=== PATIENT | male | born 1960 | race Caucasian/White ===

== ENCOUNTER 2016-10-20 00:28 | Emergency (ER) | payer MEDICARE, OTHER ==
[~2016-10-20] VITALS: Ht 175.3 cm; Wt 119.0 kg
[~2016-10-20 00:28] MED LIST: APRI0.372; ASPI1TAB7 PO; DOCU1CAP39 PO; FURO20 PO; GABA300C3 PO; METH40TA9 PO; NITR.4 SL; POTA20IN3 PO; SPIR25TA PO; TRAZ100 PO
[2016-10-20] MEDS ORDERED: SODIUM CHLOR 0.9% 1000 ML INJ 1,000 ML IV SCH (00:42)
[2016-10-20] MEDS ORDERED: METH40TA PO (00:42)
[2016-10-20 00:45] VITALS: RESP 18; O2SAT 96
[2016-10-20] MEDS ORDERED: cloNIDine HCL 0.1 MG TAB PO ONE (00:45)
[2016-10-20] MEDS ORDERED: SODIUM CHLORIDE 0.9% FLUSH 10 ML FLUSH IV FLUSH PRN (00:45)
[2016-10-20] MEDS ORDERED: LORazepam 2 MG/ML VIAL IV PUSH ONE (00:45)
[2016-10-20] MEDS ORDERED: LORA-392 PO (03:08)
[2016-10-20] MEDS ORDERED: CLON0.1T PO (03:08)
--- NOTE | 2016-10-20 03:09 | PD ---
HPI Chief Complaint: Anxiety Time Seen by Provider: 00:42 Travel History International Travel<30 days: No Contact w/Intl Traveler<30days: No Traveled to known affect area: No History of Present Illness HPI A 56-year-old male has a history of methadone use, 190 mg daily for 2 years. He took Suboxone yesterday 2 mg. He called EMS due to a generalized sensation of feeling poor. Diaphoresis and restlessness was observed on scene by EMS. Patient has had no chest pain or shortness of breath. He states he intends to taper down his methadone. He denies drug abuse otherwise. PFSH Past Medical History Arthritis: Yes Asthma: No Blood Disorders: No Bipolar Disorder: Yes Anxiety: Yes Depression: Yes Heart Rhythm Problems: Yes (MURMUR) Cancer: Yes (PROSTATE) Cardiovascular Problems: Yes ([place]) High Cholesterol: No Chest Pain: Yes Congestive Heart Failure: No COPD: No Cerebrovascular Accident: No Diabetes: No Diminished Hearing: No Endocrine: No Gastrointestinal Disorders: Yes (ULCERATIVE COLITIS) Genitourinary: No Headaches: No Hypertension: Yes Immune Disorder: No Musculoskeletal: Yes (HERNIATED DISCS X 3) Neurologic: Yes Psychiatric: Yes Reproductive: No Respiratory: Yes Migraines: No Myocardial Infarction: No Seizures: Yes Sleep Apnea: No Past Surgical History Abdominal Surgery: Yes (COLONOSCOPY) AICD: No Arteriovenous Shunt: No Genitourinary Surgery: Yes (PROSTATE REMOVED) Insulin Pump: No Joint Replacement: No Pacemaker: No Other Surgery: No Social History Alcohol Use: No (QUIT 2011) Tobacco Use: Yes (CIGARETTS 1PPD) Substance Use: Yes (QUIT X 1 YEAR taking methadone) Allergies-Medications (Allergen,Severity, Reaction): Coded Allergies: Nonsteroidal Anti-Inflammatory Agts (Verified Allergy, Intermediate, worsens colitis problems, 10/20/16) Ibuprofen (Verified Adverse Reaction, Intermediate, 10/20/16) Uncoded Allergies: steriods (Adverse Reaction, Intermediate, 05/21/13) Reported Meds & Prescriptions Reported Meds & Active Scripts Active Reported Methadone (Methadone HCl) 40 Mg Tab 190 Mg PO DAILY Review of Systems Except as stated in HPI: all other systems reviewed are Neg Physical Exam Narrative GENERAL: 56-year-old male well-nourished well-developed mildly anxious SKIN: Focused skin assessment warm/dry. HEAD: Atraumatic. Normocephalic. EYES: Pupils equal and round. No scleral icterus. No injection or drainage. ENT: No nasal bleeding or discharge. Mucous membranes pink and moist. NECK: Trachea midline. No JVD. CARDIOVASCULAR: Regular rate and rhythm. No murmur appreciated. RESPIRATORY: No accessory muscle use. Clear to auscultation. Breath sounds equal bilaterally. GASTROINTESTINAL: Abdomen soft, non-tender, nondistended. Hepatic and splenic margins not palpable. MUSCULOSKELETAL: No obvious deformities. No clubbing. No cyanosis. No edema. NEUROLOGICAL: Awake and alert. No obvious cranial nerve deficits. Motor grossly within normal limits. Normal speech. PSYCHIATRIC: Cooperative. Mildly anxious. Data Data Last Documented VS Vital Signs Date Time Temp Pulse Resp B/P Pulse Ox O2 Delivery O2 Flow Rate FiO2 10/20/16 00:45 18 96 Room Air Orders Lorazepam Inj (Ativan Inj) (10/20/16 00:45) Clonidine (Catapres) (10/20/16 00:45) Iv Access Insert/Monitor (10/20/16 00:42) Ecg Monitoring (10/20/16 00:42) Oximetry (10/20/16 00:42) Sodium Chlor 0.9% 1000 Ml Inj (Ns 1000 M (10/20/16 00:42) Sodium Chloride 0.9% Flush (Ns Flush) (10/20/16 00:45) MDM Medical Decision Making Medical Screen Exam Complete: Yes Emergency Medical Condition: Yes Differential Diagnosis opioid withdrawal, anxiety, panic attack Narrative Course Patient's presentation is considered in keeping with opioid withdrawal. We will mitigate his symptoms here as best we can. Upon reassessment the patient demonstrates good insight. He states he'll have access to methadone in 1 day. We'll provide him some Ativan and clonidine. He understands the side effects of both pain is considered a reasonable and responsible patient. Diagnosis Primary Impression: Opioid withdrawal Referrals: Isidoro Menchaca MD R3 2 days Additional Instructions: You have a choice when it comes to health care, and we are glad that you chose [facility]. Hopefully, we have met your expectations on today's visit. You are welcome to return to [facility] at any time, as we are committed to meeting the health care needs of our community. Med/Other Pt SpecificInfo: Prescription(s) given Scripts Clonidine 0.1 Mg Tab0.1 Mg PO BID #5 TAB Ref 0 Prov:Pedro Luis Munoz MD 10/20/16 Lorazepam (Ativan)0.5 Mg Tab0.5 Mg PO Q6H PRN (ANXIETY AND/OR AGITATION) #5 TAB Ref 0 Prov:Pedro Luis Munoz MD 10/20/16 Disposition: 01 DISCHARGE HOME Condition: Stable Pedro Luis Munoz MD Oct 20, 2016 03:09
[2016-10-20 03:11] VITALS: BP 125/70; PULSE 63; RESP 18; O2SAT 96
== END 2016-10-20 04:06 | disposition home or self-care (01) ==
LOC: NEPC 00:28
DX: F11.23 Opioid dependence with withdrawal (principal); R61 Generalized hyperhidrosis; R45.1 Restlessness and agitation; I10 Essential (primary) hypertension; F17.210 Nicotine dependence, cigarettes, uncomplicated
CPT/HCPCS: 96361; 96374; 99284; J2060; J7030

== ENCOUNTER 2016-11-04 10:42 | Emergency (ER) | payer OTHER ==
[~2016-11-04 10:42] MED LIST changes: -APRI0.372; -ASPI1TAB7 PO; +CLON0.1T PO; -DOCU1CAP39 PO; -FURO20 PO; -GABA300C3 PO; +LORA-392 PO; +METH40TA PO; -METH40TA9 PO; -NITR.4 SL; -POTA20IN3 PO; -SPIR25TA PO; -TRAZ100 PO
[2016-11-04 10:44] VITALS: BP 143/76; PULSE 88; RESP 24; TEMP 97.9; O2SAT 91
[2016-11-04] MEDS ORDERED: SODIUM CHLORID 0.9% 500 ML INJ 500 ML IV ONE (11:15)
[2016-11-04] MEDS ORDERED: methylPREDNISolone SOD SUCC 125 MG/2 ML VIAL IVP ONE (11:15)
[2016-11-04] MEDS ORDERED: FUROSEMIDE 40 MG/4 ML VIAL IVP ONE (11:15)
[2016-11-04] MEDS ORDERED: SODIUM CHLORIDE 0.9% FLUSH 10 ML FLUSH IVF PRN (11:15)
--- NOTE | 2016-11-04 11:28 | PD ---
HPI Chief Complaint: Medical Clearance Time Seen by Provider: 11:11 Travel History International Travel<30 days: No Contact w/Intl Traveler<30days: No Traveled to known affect area: No History of Present Illness HPI 56-year-old male presents the emergency department via ambulance with several day history of increasing cough, wheezing, shortness of breath, dyspnea with exertion. Patient has had decreased appetite, but denies specific fever, but does have chills. Patient complains of mild nausea but no vomiting or diarrhea. Patient states his cough is productive of yellowish-green sputum. Patient denies headache, sore throat, or nasal congestion. Patient has a history of [place], COPD, current smoker, and CHF. Patient states he is not taking any type of diuretic currently. Patient does not use home nebulizers or inhalers. Patient is somewhat poor historian. Patient feels generalized weakness today. Patient reports allergies to ibuprofen, nonsteroidals, and steroids. PFSH Past Medical History Arthritis: Yes Asthma: No Blood Disorders: No Bipolar Disorder: Yes Anxiety: Yes Depression: Yes Heart Rhythm Problems: Yes (MURMUR) Cancer: Yes (PROSTATE) Cardiovascular Problems: Yes ([place]) High Cholesterol: No Chest Pain: Yes Congestive Heart Failure: No COPD: No Cerebrovascular Accident: No Diabetes: No Diminished Hearing: No Endocrine: No Gastrointestinal Disorders: Yes (ULCERATIVE COLITIS) Genitourinary: No Headaches: No Hypertension: Yes Immune Disorder: No Musculoskeletal: Yes (HERNIATED DISCS X 3) Neurologic: Yes Psychiatric: Yes Reproductive: No Respiratory: Yes Migraines: No Myocardial Infarction: No Seizures: Yes Sleep Apnea: No Past Surgical History Abdominal Surgery: Yes (COLONOSCOPY) AICD: No Arteriovenous Shunt: No Genitourinary Surgery: Yes (PROSTATE REMOVED) Insulin Pump: No Joint Replacement: No Pacemaker: No Other Surgery: No Social History Alcohol Use: No (QUIT 2011) Tobacco Use: Yes (CIGARETTS 1PPD) Substance Use: Yes (QUIT X 1 YEAR taking methadone) Allergies-Medications (Allergen,Severity, Reaction): Coded Allergies: Nonsteroidal Anti-Inflammatory Agts (Verified Allergy, Intermediate, worsens colitis problems, 10/20/16) Ibuprofen (Verified Adverse Reaction, Intermediate, 10/20/16) Uncoded Allergies: steriods (Adverse Reaction, Intermediate, 05/21/13) Reported Meds & Prescriptions Reported Meds & Active Scripts Active Prednisone 20 Mg Tab 20 Mg PO BID Azithromycin 500 Mg Tab 500 Mg PO DAILY Ventolin Hfa 18 GM Inh (Albuterol Sulfate) 90 Mcg/Act Aer 2 Puff INH Q4-6H PRN Clonidine (Clonidine HCl) 0.1 Mg Tab 0.1 Mg PO BID Ativan (Lorazepam) 0.5 Mg Tab 0.5 Mg PO Q6H PRN Reported Methadone (Methadone HCl) 40 Mg Tab 190 Mg PO DAILY Review of Systems ROS Limitations: Poor Historian Except as stated in HPI: all other systems reviewed are Neg General / Constitutional: Positive: Chills, No: Fever Eyes: No: Visual changes HENT: Positive: Rhinitis, Rhinorrhea, Congestion, No: Headaches, Vertigo, Lightheadedness, Sore Throat, Nosebleed, Neck Stiffness, Neck Pain, Dental Difficulties, Ear Discharge, Earache Cardiovascular: Positive: Dyspnea on exertion, No: Chest Pain or Discomfort, Edema Respiratory: Positive: Cough, Shortness of Breath, Orthopnea, No: Wheezing, Sneezing, Hemoptysis, Night Sweats, Pleuritic Pain Gastrointestinal: Positive: Nausea, No: Vomiting, Diarrhea, Abdominal Pain Genitourinary: No: Dysuria Musculoskeletal: No: Pain Skin: No Rash Neurologic: No: Weakness Psychiatric: No: Depression Endocrine: No: Polydipsia Hematologic/Lymphatic: No: Easy Bruising Physical Exam Narrative GENERAL: Patient appears unwell but not septic. SKIN: Warm and dry. Somewhat poor pallor. Poor turgor. Mild tenting. HEAD: Atraumatic. Normocephalic. EYES: Pupils equal and round. No scleral icterus. No injection or drainage. ENT: No nasal bleeding or discharge. Mucous membranes pink and somewhat dry. TMs clear. No sinus tenderness. No rhinitis. Pharynx is normal. Airway is patent. NECK: Trachea midline. No JVD. Neck is supple nontender. CARDIOVASCULAR: Regular rate and rhythm. No murmurs gallops or rubs RESPIRATORY: No accessory muscle use. Diffuse wheezes and rales throughout to auscultation. Breath sounds equal bilaterally. GASTROINTESTINAL: Abdomen soft, non-tender, nondistended. Hepatic and splenic margins not palpable. MUSCULOSKELETAL: Extremities without clubbing, cyanosis, or edema. No obvious deformities. NEUROLOGICAL: Awake and alert. No obvious cranial nerve deficits. Motor grossly within normal limits. Five out of 5 muscle strength in the arms and legs. Normal speech. PSYCHIATRIC: Appropriate mood and affect; insight and judgment normal. Data Data Last Documented VS Vital Signs Date Time Temp Pulse Resp B/P Pulse Ox O2 Delivery O2 Flow Rate FiO2 11/04/16 11:35 94 Nasal Cannula 2.00 11/04/16 10:44 97.9 88 24 143/76 Orders Complete Blood Count With Diff (11/04/16 11:15) Comprehensive Metabolic Panel (11/04/16 11:15) B-Type Natriuretic Peptide (11/04/16 11:15) Act Partial Throm Time (Ptt) (11/04/16 11:15) Prothrombin Time / Inr (Pt) (11/04/16 11:15) Magnesium (Mg) (11/04/16 11:15) Ckmb (Isoenzyme) Profile (11/04/16 11:15) Troponin I (11/04/16 11:15) Urinalysis - C+S If Indicated (11/04/16 11:15) Influenzae A/B Antigen (11/04/16 11:15) Blood Culture (11/04/16 11:15) Iv Access Insert/Monitor (11/04/16 11:15) Electrocardiogram (11/04/16 11:15) Ecg Monitoring (11/04/16 11:15) Oximetry (11/04/16 11:15) Oxygen Administration (11/04/16 11:15) Chest, Single Ap (11/04/16 11:15) Sodium Chloride 0.9% Flush (Ns Flush) (11/04/16 11:15) Furosemide Inj (Lasix Inj) (11/04/16 11:15) Methylprednisolone So Succ Inj (Solumedr (11/04/16 11:15) Albuterol-Ipratropium Neb (Duoneb Neb) (11/04/16 11:15) Sodium Chlorid 0.9% 500 Ml Inj (Ns 500 M (11/04/16 11:15) Lactic Acid (11/04/16 11:21) Ceftriaxone Inj (Rocephin Inj) (11/04/16 13:15) Azithromycin (Zithromax) (11/04/16 13:15) Labs Laboratory Tests Test 11/04/16 11/04/16 11:25 12:20 White Blood Count 10.3 TH/MM3 Red Blood Count 4.59 MIL/MM3 Hemoglobin 13.2 GM/DL Hematocrit 38.9 % Mean Corpuscular Volume 84.8 FL Mean Corpuscular Hemoglobin 28.8 PG Mean Corpuscular Hemoglobin 33.9 % Concent Red Cell Distribution Width 14.7 % Platelet Count 171 TH/MM3 Mean Platelet Volume 9.4 FL Neutrophils (%) (Auto) 76.5 % Lymphocytes (%) (Auto) 15.3 % Monocytes (%) (Auto) 7.8 % Eosinophils (%) (Auto) 0.1 % Basophils (%) (Auto) 0.3 % Neutrophils # (Auto) 7.9 TH/MM3 Lymphocytes # (Auto) 1.6 TH/MM3 Monocytes # (Auto) 0.8 TH/MM3 Eosinophils # (Auto) 0.0 TH/MM3 Basophils # (Auto) 0.0 TH/MM3 CBC Comment DIFF FINAL Differential Comment Prothrombin Time 10.7 SEC Prothromb Time International 1.0 RATIO Ratio Activated Partial 28.8 SEC Thromboplast Time Sodium Level 135 MEQ/L Potassium Level 3.9 MEQ/L Chloride Level 99 MEQ/L Carbon Dioxide Level 27.0 MEQ/L Anion Gap 9 MEQ/L Blood Urea Nitrogen 14 MG/DL Creatinine 0.75 MG/DL Estimat Glomerular Filtration 107 ML/MIN Rate Random Glucose 105 MG/DL Lactic Acid Level 1.0 mmol/L Calcium Level 8.5 MG/DL Magnesium Level 2.0 MG/DL Total Bilirubin 0.4 MG/DL Aspartate Amino Transf 23 U/L (AST/SGOT) Alanine Aminotransferase 23 U/L (ALT/SGPT) Alkaline Phosphatase 175 U/L Total Creatine Kinase 62 U/L Troponin I LESS THAN 0.02 NG/ML B-Type Natriuretic Peptide 12 PG/ML Total Protein 7.5 GM/DL Albumin 3.1 GM/DL Urine Color YELLOW Urine Turbidity CLEAR Urine pH 6.0 Urine Specific [place] 1.012 Urine Protein NEG mg/dL Urine Glucose (UA) NEG mg/dL Urine Ketones NEG mg/dL Urine Occult Blood NEG Urine Nitrite NEG Urine Bilirubin NEG Urine Urobilinogen 2.0 MG/DL Urine Leukocyte Esterase TRACE Urine RBC LESS THAN 1 /hpf Urine WBC 1 /hpf Urine Squamous Epithelial <1 /hpf Cells Urine Hyaline Casts 1 /lpf Urine Mucus FEW /lpf Microscopic Urinalysis Comment CULT NOT INDICATED MDM Medical Decision Making Medical Screen Exam Complete: Yes Emergency Medical Condition: Yes Medical Record Reviewed: Yes Differential Diagnosis Bronchitis. Pneumonia. CHF. COPD with acute exacerbation. Coronary syndrome. Narrative Course Patient is medically stable at time of exam. Labs ordered including CBC, CMP, cardiac panel, lactic acid, blood cultures 2, proBNP, and urinalysis Chest x-ray is ordered. EKG is ordered. EKG shows first-degree AV block with lateral myocardial infarction which is old. This is reviewed with Dr. Mello. Patient is given 40 mg Lasix and 125 mg Solu-Medrol IV. Patient is given DuoNeb every 15 minutes 3. CBC is unremarkable. CMP is unremarkable except for sodium 135. Alkaline phosphatase of 175, troponin of less than 0.02, albumin is 3.1. ProBNP is 12. Lactic acid is normal at 1.0. Coagulation studies are unremarkable. Urinalysis was unremarkable. Patient is given 1 g Rocephin IV as well as 500 mg azithromycin by mouth. Patient was discharged home on prednisone 20 mg twice a day 5 days. Patient is also given albuterol metered-dose inhaler 2 puffs every 4-6 hours when necessary cough wheeze. Patient also continued on azithromycin 500 mg daily for the next 5 days. Patient is encouraged to quit smoking as soon as possible. Patient should follow with his primary care physician in next several days to ensure improvement. Patient can return to emergency Department with worsening symptoms if necessary. Diagnosis Primary Impression: Acute wheezy bronchitis Additional Impression: COPD with acute exacerbation Referrals: Primary Care Physician call for appointment Patient Instructions: Acute Bronchitis (ED), COPD (Chronic Obstructive Pulmonary Disease) (ED), General Instructions, How to Stop Smoking (ED), How to Use a Metered-Dose Inhaler (ED), Prednisone (By mouth) Additional Instructions: Patient is given 1 g Rocephin IV as well as 500 mg azithromycin by mouth. Patient was discharged home on prednisone 20 mg twice a day 5 days. Patient is also given albuterol metered-dose inhaler 2 puffs every 4-6 hours when necessary cough wheeze. Patient also continued on azithromycin 500 mg daily for the next 5 days. Patient is encouraged to quit smoking as soon as possible. Patient should follow with his primary care physician in next several days to ensure improvement. Patient can return to emergency Department with worsening symptoms if necessary. Med/Other Pt SpecificInfo: Prescription(s) given Scripts Prednisone 20 Mg Tab20 Mg PO BID #10 TAB Prov:Rajat Mello MD 11/04/16 Azithromycin 500 Mg [id number] Mg PO DAILY #5 TAB Ref 0 Prov:Rajat Mello MD 11/04/16 Albuterol 18 GM Inh (Ventolin Hfa 18 GM Inh)90 Mcg/Act Aer2 Puff INH Q4-6H PRN ( SHORTNESS OF BREATH) #1 INHALER Prov:Rajat Mello MD 11/04/16 Disposition: 01 DISCHARGE HOME Condition: Stable Dipesh Oconnor Nov 04, 2016 11:11
[2016-11-04] MEDS: RESP: ALBUTEROL 2.5 MG/IPRATROPIUM 0.5 MG NEB (SCH) INH ×2 (11:31→11:32)
[2016-11-04 11:35] VITALS: O2SAT 94
[2016-11-04 11:55] LABS: AUTOMATED NEUTROPHIL # 7.9 TH/MM3 (1.8-7.7); BASOPHIL % 0.3 % (0.0-2.0); EOSINOPHIL % 0.1 % (0.0-4.0); HEMATOCRIT 38.9 % (39.0-51.0); HEMO FLAGS DIFF FINAL; LYMPH % 15.3 % (9.0-44.0); LYMPHOCYTE # 1.6 TH/MM3 (1.0-4.8); MEAN CELL VOLUME 84.8 FL (80.0-100.0); MEAN CORPUSCULAR HEMOGLOBIN 28.8 PG (27.0-34.0); MEAN CORPUSCULAR HGB CONC 33.9 % (32.0-36.0); MONO % 7.8 % (0.0-8.0); NEUT % 76.5 % (16.0-70.0); PLATELET COUNT 171 TH/MM3 (150-450); RED BLOOD COUNT 4.59 MIL/MM3 (4.50-5.90); RED CELL DISTRIBUTION WIDTH 14.7 % (11.6-17.2); WHITE BLOOD COUNT 10.3 TH/MM3 (4.0-11.0)
[2016-11-04 12:04] LABS: APTT (PATIENT) 28.8 SEC (24.3-30.1); PROTHROMBIN TIME - PATIENT 10.7 SEC (9.8-11.6)
[2016-11-04 12:17] LABS: ALT (GPT) 23 U/L (12-78); ANION GAP 9 MEQ/L (5-15); AST (GOT) 23 U/L (15-37); BLOOD UREA NITROGEN 14 MG/DL (7-18); CHLORIDE 99 MEQ/L (98-107); GLOMERULAR FILTRATION RATE 107 ML/MIN (>89); POTASSIUM 3.9 MEQ/L (3.5-5.1); SODIUM (NA) 135 MEQ/L (136-145)
[2016-11-04 12:21] LABS: ALKALINE PHOSPHATASE 175 U/L (45-117); TOTAL BILIRUBIN ADULT 0.4 MG/DL (0.2-1.0)
[2016-11-04 12:28] LABS: CREATINE KINASE 62 U/L (39-308)
[2016-11-04 12:55] LABS: BLOOD, URINE NEG (NEG); COMMENT (UR) CULT NOT INDICATED; CULTURE IF INDICATED CULT NOT INDICATED; GLUCOSE,URINE NEG (NEG); HYALINE CAST, URINE 1 /lpf (RARE); KETONE, URINE NEG (NEG); MUCUS URINE FEW /lpf (OCC); NITRITE,URINE NEG (NEG); SQUAMOUS EPITHELIAL CELL URINE <1 /hpf (0-5); URINE COLOR YELLOW (YELLW/STRAW)
[2016-11-04] MEDS ORDERED: cefTRIAXone INJ 1,000 MG in SODIUM CHLORIDE 0.9% INJ 100 ML IV ONE (13:15)
[2016-11-04] MEDS ORDERED: AZITHROMYCIN 250 MG TAB PO ONE (13:15)
--- NOTE | 2016-11-04 13:15 | RADRPT ---
EXAM DATE/TIME: 11/04/2016 12:06 [facility] COMPARISON: CHEST SINGLE AP, May 31, 2013, 12:18. INDICATIONS : Shortness of breath, nausea, vomiting, congestion. MEDICAL HISTORY : Hypertension. Myocardial infarction. Smoker. SURGICAL HISTORY : None. ENCOUNTER: Initial ACUITY: 2 days PAIN SCORE: 2/10 LOCATION: chest midline. FINDINGS: A single view of the chest demonstrates the lungs to be symmetrically aerated without evidence of mas s, infiltrate or effusion. The cardiomediastinal contours are unremarkable. Osseous structures are intact. CONCLUSION: No acute disease. Chris Cisneros MD on November 04, 2016 at 13:14 Board Certified Radiologist. This report was verified electronically.
[2016-11-04] MEDS ORDERED: VENTAER INH (13:17)
[2016-11-04] MEDS ORDERED: AZIT500T2 PO (13:17)
[2016-11-04] MEDS ORDERED: PRED20 PO (13:18)
--- NOTE | 2016-11-04 13:28 | PD ---
Data Data Last Documented VS Vital Signs Date Time Temp Pulse Resp B/P Pulse Ox O2 Delivery O2 Flow Rate FiO2 11/04/16 11:35 94 Nasal Cannula 2.00 11/04/16 11:20 80 11/04/16 10:44 97.9 24 143/76 Orders Complete Blood Count With Diff (11/04/16 11:15) Comprehensive Metabolic Panel (11/04/16 11:15) B-Type Natriuretic Peptide (11/04/16 11:15) Act Partial Throm Time (Ptt) (11/04/16 11:15) Prothrombin Time / Inr (Pt) (11/04/16 11:15) Magnesium (Mg) (11/04/16 11:15) Ckmb (Isoenzyme) Profile (11/04/16 11:15) Troponin I (11/04/16 11:15) Urinalysis - C+S If Indicated (11/04/16 11:15) Influenzae A/B Antigen (11/04/16 11:15) Blood Culture (11/04/16 11:15) Iv Access Insert/Monitor (11/04/16 11:15) Electrocardiogram (11/04/16 11:15) Ecg Monitoring (11/04/16 11:15) Oximetry (11/04/16 11:15) Oxygen Administration (11/04/16 11:15) Chest, Single Ap (11/04/16 11:15) Sodium Chloride 0.9% Flush (Ns Flush) (11/04/16 11:15) Furosemide Inj (Lasix Inj) (11/04/16 11:15) Methylprednisolone So Succ Inj (Solumedr (11/04/16 11:15) Albuterol-Ipratropium Neb (Duoneb Neb) (11/04/16 11:15) Sodium Chlorid 0.9% 500 Ml Inj (Ns 500 M (11/04/16 11:15) Lactic Acid (11/04/16 11:21) Ceftriaxone Inj (Rocephin Inj) (11/04/16 13:15) Azithromycin (Zithromax) (11/04/16 13:15) Labs Laboratory Tests Test 11/04/16 11/04/16 11:25 12:20 White Blood Count 10.3 TH/MM3 Red Blood Count 4.59 MIL/MM3 Hemoglobin 13.2 GM/DL Hematocrit 38.9 % Mean Corpuscular Volume 84.8 FL Mean Corpuscular Hemoglobin 28.8 PG Mean Corpuscular Hemoglobin 33.9 % Concent Red Cell Distribution Width 14.7 % Platelet Count 171 TH/MM3 Mean Platelet Volume 9.4 FL Neutrophils (%) (Auto) 76.5 % Lymphocytes (%) (Auto) 15.3 % Monocytes (%) (Auto) 7.8 % Eosinophils (%) (Auto) 0.1 % Basophils (%) (Auto) 0.3 % Neutrophils # (Auto) 7.9 TH/MM3 Lymphocytes # (Auto) 1.6 TH/MM3 Monocytes # (Auto) 0.8 TH/MM3 Eosinophils # (Auto) 0.0 TH/MM3 Basophils # (Auto) 0.0 TH/MM3 CBC Comment DIFF FINAL Differential Comment Prothrombin Time 10.7 SEC Prothromb Time International 1.0 RATIO Ratio Activated Partial 28.8 SEC Thromboplast Time Sodium Level 135 MEQ/L Potassium Level 3.9 MEQ/L Chloride Level 99 MEQ/L Carbon Dioxide Level 27.0 MEQ/L Anion Gap 9 MEQ/L Blood Urea Nitrogen 14 MG/DL Creatinine 0.75 MG/DL Estimat Glomerular Filtration 107 ML/MIN Rate Random Glucose 105 MG/DL Lactic Acid Level 1.0 mmol/L Calcium Level 8.5 MG/DL Magnesium Level 2.0 MG/DL Total Bilirubin 0.4 MG/DL Aspartate Amino Transf 23 U/L (AST/SGOT) Alanine Aminotransferase 23 U/L (ALT/SGPT) Alkaline Phosphatase 175 U/L Total Creatine Kinase 62 U/L Troponin I LESS THAN 0.02 NG/ML B-Type Natriuretic Peptide 12 PG/ML Total Protein 7.5 GM/DL Albumin 3.1 GM/DL Urine Color YELLOW Urine Turbidity CLEAR Urine pH 6.0 Urine Specific [place] 1.012 Urine Protein NEG mg/dL Urine Glucose (UA) NEG mg/dL Urine Ketones NEG mg/dL Urine Occult Blood NEG Urine Nitrite NEG Urine Bilirubin NEG Urine Urobilinogen 2.0 MG/DL Urine Leukocyte Esterase TRACE Urine RBC LESS THAN 1 /hpf Urine WBC 1 /hpf Urine Squamous Epithelial <1 /hpf Cells Urine Hyaline Casts 1 /lpf Urine Mucus FEW /lpf Microscopic Urinalysis Comment CULT NOT INDICATED MDM Supervised Visit with JUDD: Yes Narrative Course The history, exam, and medical decision-making in the associated mid-level provider note were completed with my assistance. I reviewed and agree with the findings presented. I attest that I had a [id number] encounter with the patient on the same day, and personally performed and documented my assessment and findings in the medical record. *My assessment and Findings: 56-year-old man, history of COPD and CHF, presents with productive cough wheezing shortness of breath and dyspnea with exertion. Otherwise well. EKG here shows normal sinus rhythm with a first-degree AV block. Chest x-ray labs are unremarkable. Patient improved after proper dilators and steroids. We'll plan treatment for COPD exacerbation and bronchitis. Diagnosis Primary Impression: Acute wheezy bronchitis Additional Impression: COPD with acute exacerbation Referrals: Primary Care Physician call for appointment Patient Instructions: General Instructions, Prednisone (By mouth), How to Stop Smoking (ED), How to Use a Metered-Dose Inhaler (ED), Acute Bronchitis (ED), COPD (Chronic Obstructive Pulmonary Disease) (ED) Additional Instruction: Patient is given 1 g Rocephin IV as well as 500 mg azithromycin by mouth. Patient was discharged home on prednisone 20 mg twice a day 5 days. Patient is also given albuterol metered-dose inhaler 2 puffs every 4-6 hours when necessary cough wheeze. Patient also continued on azithromycin 500 mg daily for the next 5 days. Patient is encouraged to quit smoking as soon as possible. Patient should follow with his primary care physician in next several days to ensure improvement. Patient can return to emergency Department with worsening symptoms if necessary. Scripts Prednisone 20 Mg Tab20 Mg PO BID #10 TAB Prov:Rajat Mello MD 11/04/16 Azithromycin 500 Mg [id number] Mg PO DAILY #5 TAB Ref 0 Prov:Rajat Mello MD 11/04/16 Albuterol 18 GM Inh (Ventolin Hfa 18 GM Inh)90 Mcg/Act Aer2 Puff INH Q4-6H PRN ( SHORTNESS OF BREATH) #1 INHALER Prov:Rajat Mello MD 11/04/16 Disposition: 01 DISCHARGE HOME Condition: Stable Rajat Mello MD Nov 04, 2016 13:28
--- NOTE | 2016-11-04 14:41 | EKG ---
Date Performed: 11/04/2016 Time Performed: 11:54:24 PTAGE: 56 years EKG: Sinus rhythm WITH FIRST DEGREE AV BLOCK NO SIGNIFICANT CHANGE FROM PRIOR ELECTROCARDIOGRAM. PREVIOUS TRACING : 05/31/2013 12.01 DOCTOR: Jerel Vernon Interpretating Date/Time 11/04/2016 14:41:03
== END 2016-11-04 14:15 | disposition home or self-care (01) ==
LOC: NEPC 10:42
DX: J20.9 Acute bronchitis, unspecified (principal); J44.1 Chronic obstructive pulmonary disease with (acute) exacerbation; F31.9 Bipolar disorder, unspecified; F41.9 Anxiety disorder, unspecified; I10 Essential (primary) hypertension; Z79.899 Other long term (current) drug therapy
CPT/HCPCS: 71010; 80053; 81001; 82550; 83605; 83735; 83880; 84484; 85025; 85610; 85730; 87040; 87804; 93005; 94640; 94664; 96374; 96375; 99285; J0696; J1940; J2930; J7040